=== PATIENT | male | born 1985 | race Two or more races ===

== ENCOUNTER 2018-05-01 16:18 | Inpatient (IN) | payer OTHER ==
[~2018-05-01] VITALS: Ht 170.2 cm; Wt 93.6 kg
[2018-05-01] MEDS ORDERED: NITROGLYCERIN 0.4 MG SL TAB SL PRN (18:30)
[2018-05-01] MEDS ORDERED: MORPHINE SULF INJ 2 MG/ML SYRINGE 1ML IV PRN (18:30)
[2018-05-01 19:05] LABS: Basophils # (auto) 0.1 uL; Basophils % (auto) 0.6 % (0.0-2.0); Eosinophils # (auto) 0.1 uL; Eosinophils % (auto) 0.6 % (0.0-7.0); Hematocrit 47.4 % (41.0-53.0); Hemoglobin 16.4 g/dL (13.5-17.5); Lymphocytes # (auto) 5.9 uL; Mean Corpuscular Hemoglobin 30.2 pg (28.0-32.0); Mean Corpuscular Hgb Conc. 34.6 g/dL (32.0-36.0); Mean Corpuscular Volume 87.4 fL (80.0-100.0); Monocytes % (auto) 8.2 % (0.0-12.0); Neutrophils # (auto) 5.5 uL; Neutrophils % (auto) 43.6 % (37.0-80.0); Nucleated Red Blood Cells % 0.2 %; Platelet Count (auto) 320 10^3/uL (140-450); Red Blood Cells 5.42 10^6/uL (4.5-5.90); White Blood Cell 12.6 10^3/uL (4.4-10.8)
[2018-05-01 19:19] LABS: INR 0.99 (0.9-1.15); Partial Thromboplastin Time 28.4 sec (23.78-33.04); Prothrombin Time 10.6 sec (9.27-12.13)
[2018-05-01 19:37] LABS: Albumin 3.9 g/dL (3.4-5.0); BUN/Creatinine Ratio 14.1; Bilirubin, Total 0.6 mg/dL (0.2-1.0); Calcium 8.6 mg/dL (8.5-10.1); Potassium 3.9 mmol/L (3.5-5.1)
[2018-05-01 20:20] VITALS: BP 152/96
[2018-05-01] MEDS: ONDANSETRON HCL 4 MG/2 ML VIAL IV PRN (23:18)
[2018-05-01] MEDS: MORPHINE SULFATE 4 MG/ML SYR/VIAL IV PRN (23:18)
[2018-05-01] MEDS: D5W/SOD CHL 0.45% 1,000 ML IV SCH (23:18)
[2018-05-02 00:19] LABS: Acetaminophen < 2.0 ug/mL (10-30)
[2018-05-02 00:27] LABS: Salicylate < 1.7 mg/dL (2.8-20.0)
[2018-05-02] MEDS: D5W/SOD CHL 0.45% 1,000 ML IV SCH ×4 (01:23→20:33)
[2018-05-02] MEDS: MORPHINE SULFATE 4 MG/ML SYR/VIAL IV PRN ×6 (01:27→20:34)
[2018-05-02] MEDS: ONDANSETRON HCL 4 MG/2 ML VIAL IV PRN ×4 (03:32→16:34)
[2018-05-02 04:01] LABS: Amphetamine Screen, Urine NEGATIVE (NEGATIVE); Barbiturate Scree,Urine NEGATIVE (NEGATIVE); Benzodiazephine Screen, Urine NEGATIVE (NEGATIVE); Cannabinoid Screen, Urine NEGATIVE (NEGATIVE); Cocaine Screen, Urine NEGATIVE (NEGATIVE); Opiate Scree,Urine POSITIVE (NEGATIVE); Phencyclidine Screen, Urine NEGATIVE (NEGATIVE)
[2018-05-02 04:50] VITALS: BP 96/53
[2018-05-02 06:17] LABS: Basophils # (auto) 0 uL; Basophils % (auto) 0.5 % (0.0-2.0); Eosinophils # (auto) 0.1 uL; Eosinophils % (auto) 1.1 % (0.0-7.0); Lymphocytes # (auto) 4.7 uL; Lymphocytes % (auto) 51.4 % (10.0-50.0); Mean Corpuscular Hemoglobin 30.1 pg (28.0-32.0); Mean Corpuscular Hgb Conc. 34.8 g/dL (32.0-36.0); Mean Corpuscular Volume 86.5 fL (80.0-100.0); Monocytes # (auto) 0.9 uL; Monocytes % (auto) 9.5 % (0.0-12.0); Neutrophils # (auto) 3.4 uL; Neutrophils % (auto) 37.5 % (37.0-80.0); Nucleated Red Blood Cells % 0.2 %; Platelet Count (auto) 253 10^3/uL (140-450); Red Blood Cells 4.97 10^6/uL (4.5-5.90); Red Cell Distribution Width 13.8 % (11.8-14.3); White Blood Cell 9.1 10^3/uL (4.4-10.8)
[2018-05-02 06:29] LABS: Albumin 3.1 g/dL (3.4-5.0); BUN/Creatinine Ratio 11.1; Calcium 7.5 mg/dL (8.5-10.1); Potassium 3.9 mmol/L (3.5-5.1)
[2018-05-02 06:36] LABS: Bilirubin, Total 0.8 mg/dL (0.2-1.0); Total Protein 6.4 g/dL (6.4-8.2)
[2018-05-02 09:00] VITALS: BP 140/92
[2018-05-02] MEDS: PANTOPRAZOLE 40 MG TAB PO SCH (09:42)
[2018-05-02] MEDS: LACTULOSE 20Gm/30ML SOLN PO SCH ×4 (09:42→21:27)
[2018-05-02] MEDS ORDERED: SODIUM CHLORIDE LOCK 10 ML ONE (12:31)
[2018-05-02] MEDS ORDERED: diphenhdrAMINE HCL 50 MG/1 ML VL ONE (12:32)
[2018-05-02 13:00] VITALS: BP 156/93
[2018-05-02] MEDS: MIDAZOLAM HCL 5 MG/ML-1ML VIAL ONE ×2 (13:00→13:04)
[2018-05-02] MEDS: fentaNYL CITRATE 100 MCG/2 ML VL ONE ×2 (13:00→13:04)
[2018-05-02 16:50] VITALS: BP 100/62
[2018-05-02 22:00] VITALS: BP 110/87
[2018-05-03] MEDS: MORPHINE SULFATE 4 MG/ML SYR/VIAL IV PRN ×6 (00:48→22:29)
[2018-05-03] MEDS: LACTULOSE 20Gm/30ML SOLN PO SCH ×6 (02:00→22:48)
[2018-05-03] MEDS: D5W/SOD CHL 0.45% 1,000 ML IV SCH ×4 (03:37→22:36)
[2018-05-03 05:49] VITALS: BP 116/76
[2018-05-03 07:10] LABS: Basophils # (auto) 0 uL; Basophils % (auto) 0.6 % (0.0-2.0); Eosinophils # (auto) 0.1 uL; Eosinophils % (auto) 1.4 % (0.0-7.0); Hemoglobin 14.8 g/dL (13.5-17.5); Lymphocytes # (auto) 3.5 uL; Lymphocytes % (auto) 45.5 % (10.0-50.0); Mean Corpuscular Hemoglobin 30.7 pg (28.0-32.0); Mean Corpuscular Hgb Conc. 35.2 g/dL (32.0-36.0); Mean Corpuscular Volume 87.2 fL (80.0-100.0); Monocytes # (auto) 0.8 uL; Monocytes % (auto) 10.4 % (0.0-12.0); Neutrophils # (auto) 3.2 uL; Neutrophils % (auto) 42.1 % (37.0-80.0); Nucleated Red Blood Cells % 0.2 %; Platelet Count (auto) 235 10^3/uL (140-450); Red Blood Cells 4.82 10^6/uL (4.5-5.90); Red Cell Distribution Width 13.8 % (11.8-14.3); White Blood Cell 7.6 10^3/uL (4.4-10.8)
[2018-05-03 07:17] LABS: Albumin 2.8 g/dL (3.4-5.0); BUN/Creatinine Ratio 4.8; Calcium 7.6 mg/dL (8.5-10.1); Potassium 4.1 mmol/L (3.5-5.1)
[2018-05-03 08:59] VITALS: BP 114/83
[2018-05-03] MEDS: PANTOPRAZOLE 40 MG TAB PO SCH (09:26)
[2018-05-03 10:22] LABS: Hepatitis A Ab IgM Negative; Hepatitis B Core IgM Negative
[2018-05-03 10:23] LABS: Hepatitis B Surface Antigen Negative (Negative)
[2018-05-03 10:51] LABS: Hepatitis C Antibody Positive (Negative)
[2018-05-03] MEDS: ONDANSETRON HCL 4 MG/2 ML VIAL IV PRN (11:50)
[2018-05-03] MEDS: HYDROcodone-ACET 10/325MG TAB PO PRN ×3 (11:51→20:15)
[2018-05-03 12:27] VITALS: BP 140/89
[2018-05-03 17:00] VITALS: BP 144/95
[2018-05-03 21:53] VITALS: BP 102/56
[2018-05-04] MEDS: HYDROcodone-ACET 10/325MG TAB PO PRN ×6 (00:42→23:15)
[2018-05-04] MEDS: LACTULOSE 20Gm/30ML SOLN PO SCH ×6 (02:31→21:49)
[2018-05-04] MEDS: MORPHINE SULFATE 4 MG/ML SYR/VIAL IV PRN ×5 (02:31→20:07)
[2018-05-04 05:30] VITALS: BP 93/51
[2018-05-04] MEDS: D5W/SOD CHL 0.45% 1,000 ML IV SCH ×3 (06:30→20:07)
[2018-05-04 06:32] LABS: Hematocrit 42.3 % (41.0-53.0); Mean Corpuscular Hemoglobin 30.7 pg (28.0-32.0); Mean Corpuscular Hgb Conc. 35.5 g/dL (32.0-36.0); Mean Corpuscular Volume 86.3 fL (80.0-100.0); Platelet Count (auto) 242 10^3/uL (140-450); Red Cell Distribution Width 13.3 % (11.8-14.3); White Blood Cell 7.3 10^3/uL (4.4-10.8)
[2018-05-04 06:38] LABS: Basophils % (manual) 0 (0.0-2.0); Blast Cells 0; Metamyelocytes % 0; Myelocytes % 0; Promyelocytes % 0; Reactive Lymphocytes 0
[2018-05-04 06:58] LABS: Albumin 3.1 g/dL (3.4-5.0); Bilirubin, Total 0.9 mg/dL (0.2-1.0); Calcium 8.2 mg/dL (8.5-10.1); Potassium 4.2 mmol/L (3.5-5.1); Total Protein 6.4 g/dL (6.4-8.2)
[2018-05-04 08:00] VITALS: BP 92/69
[2018-05-04 08:08] LABS: Band Neutrophils % (manual) 1; Eosinophils % (manual) 4 (0-7); Lymphocytes % (manual) 52 (10.0-50.0); Monocytes % (manual) 7 (0-12)
[2018-05-04 08:48] VITALS: BP 92/69
[2018-05-04] MEDS: PANTOPRAZOLE 40 MG TAB PO SCH (09:31)
[2018-05-04 12:17] VITALS: BP 123/72
[2018-05-04 17:14] VITALS: BP 109/64
[2018-05-04 22:00] VITALS: BP 104/46
[2018-05-05] MEDS: MORPHINE SULFATE 4 MG/ML SYR/VIAL IV PRN ×3 (00:28→10:42)
[2018-05-05] MEDS: LACTULOSE 20Gm/30ML SOLN PO SCH ×5 (01:30→18:00)
[2018-05-05] MEDS: D5W/SOD CHL 0.45% 1,000 ML IV SCH ×2 (02:09→10:43)
[2018-05-05 05:00] VITALS: BP 112/63
[2018-05-05] MEDS: HYDROcodone-ACET 10/325MG TAB PO PRN ×2 (06:13→13:59)
[2018-05-05 06:22] LABS: Basophils # (auto) 0.1 uL; Basophils % (auto) 0.9 % (0.0-2.0); Eosinophils # (auto) 0.1 uL; Eosinophils % (auto) 1.7 % (0.0-7.0); Hemoglobin 14.9 g/dL (13.5-17.5); Lymphocytes # (auto) 3.8 uL; Lymphocytes % (auto) 49.6 % (10.0-50.0); Mean Corpuscular Hemoglobin 29.7 pg (28.0-32.0); Mean Corpuscular Hgb Conc. 34.6 g/dL (32.0-36.0); Monocytes # (auto) 0.7 uL; Monocytes % (auto) 9.7 % (0.0-12.0); Neutrophils # (auto) 2.9 uL; Neutrophils % (auto) 38.1 % (37.0-80.0); Nucleated Red Blood Cells % 0.1 %; Platelet Count (auto) 256 10^3/uL (140-450); Red Blood Cells 5.01 10^6/uL (4.5-5.90); Red Cell Distribution Width 13.7 % (11.8-14.3); White Blood Cell 7.6 10^3/uL (4.4-10.8)
[2018-05-05 09:00] VITALS: BP 111/48
[2018-05-05] MEDS: PANTOPRAZOLE 40 MG TAB PO SCH (10:42)
[2018-05-05 13:00] VITALS: BP 134/95
[2018-05-05 17:54] VITALS: BP 100/58
== END 2018-05-05 19:26 | DRG 393 ==
LOC: ER 16:25 → OVERFLOW 16:26 → EEVIPCON 16:26 → EAST 20:20
PROVIDERS: ADMIT Internal Medicine; ATTEND Internal Medicine
PROC: 0DJ08ZZ Inspection of Upper Intestinal Tract, Via Natural or Artificial Opening Endoscopic (ICD-10-PCS; principal; 2018-05-02 12:56)
DX: T18.2XXA Foreign body in stomach, initial encounter (principal); K29.71 Gastritis, unspecified, with bleeding; Z78.9 Other specified health status; Y93.89 Activity, other specified; Y92.89 Other specified places as the place of occurrence of the external cause; Y99.8 Other external cause status
CPT/HCPCS: 36415; 43235; 74018; 74021; 74022; 74176; 80053; 80074; 80307; 80320; 80329; 85007; 85025; 85027; 85610; 85730; 94761; A6257; J2250; J2405